=== PATIENT | female | born 1980 ===

== ENCOUNTER 2018-10-25 09:08 | Emergency (ER) | payer OTHER ==
[2018-10-25 09:41] VITALS: BP 152/90
--- NOTE | 2018-10-25 09:59 | UC ---
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 She is right handed. Has had medial right elbow pain x months (6+) Pain is constant It is exacerbated by painting or spackling worse past few days tried a tennis elbow brace that did not help no neck pain - History of Current Complaint Chief Complaint: UCUpperExtremity Stated Complaint: RIGHT ELBOW/ARM COMPLAINT (WC) Time Seen by Provider: 10/25/18 09:44 Hx Obtained From: Patient Hx Last Menstrual Period: 10/15/18 Mechanism of Injury: painting/spackling (she suspect an overuse injury) Onset/Duration: Weeks - mos Severity Initially: Mild Severity Currently: Mild Pain Intensity: 3 - worse with use Pain Scale Used: 0-10 Numeric Location Of Pain: Is Discrete @ - medial elbow, Radiates To - burning pain radiates to medial forearm Aggravating Factor(s): Movement, Pulling, Twisting Alleviating Factor(s): Rest Associated Signs And Symptoms: Positive: Numbness/Tingling. Negative: Swelling , Redness, Bruising, Fever, Weakness Body - Head: 1 - pain here (tender medial epicondyle) 2 - burning pain - Allergies/Home Medications Allergies/Adverse Reactions: Allergies Allergy/AdvReac Type Severity Reaction Status Date / Time No Known Allergies Allergy Verified 10/25/18 10:28 PMH/Surg Hx/FS Hx/Imm Hx Previously Healthy: Yes - Surgical History Surgical History: None - Family History Known Family History: Positive: Other - mom and sister have LUPUS - Social History Alcohol Use: Weekly Substance Use Type: None Smoking Status (MU): Heavy Every Day Tobacco Smoker Type: Cigarettes Amount Used/How Often: 1 ppd Review of Systems All Other Systems Reviewed And Are Negative: Yes Constitutional: Positive: Negative Skin: Positive: Negative Eyes: Positive: Negative ENT: Positive: Negative Respiratory: Positive: Negative Cardiovascular: Positive: Negative Gastrointestinal: Positive: Negative Genitourinary: Positive: Negative Motor: Positive: Negative Neurovascular: Positive: Negative Musculoskeletal: Positive: Arthralgia Neurological: Positive: Negative Psychological: Positive: Negative Physical Exam Triage Information Reviewed: Yes Appearance: Well-Appearing, No Pain Distress, Well-Nourished Vital Signs: Initial Vital Signs Temp 98.4 F 10/25/18 09:38 Pulse 101 10/25/18 09:38 Resp 16 10/25/18 09:38 BP 152/90 10/25/18 09:38 Pulse Ox 100 10/25/18 09:38 Vital Signs Reviewed: Yes Eyes: Positive: Conjunctiva Clear ENT: Positive: Hearing grossly normal, Uvula midline. Negative: Nasal congestion, Nasal drainage, Tonsillar swelling, Tonsillar exudate, Trismus, Hoarse voice Neck: Positive: Supple, Nontender, No Lymphadenopathy Respiratory: Positive: Lungs clear, Normal breath sounds, No respiratory distress Cardiovascular: Positive: RRR, No Murmur Musculoskeletal: Positive: ROM Intact, No Edema, Other: - see image Neurological: Positive: Alert Psychological Exam: Normal Skin Exam: Normal Elbow Pain Course/Dx - Differential Dx/Diagnosis Provider Diagnosis: Medial epicondylitis, right elbow Discharge - Sign-Out/Discharge Documenting (check all that apply): Patient Departure All imaging exams completed and their final reports reviewed: Yes - Discharge Plan Condition: Stable Disposition: HOME Prescriptions: Naproxen [Naprosyn 500 mg tab] 500 mg PO BID PRN #30 tablet PRN Reason: Pain Patient Education Materials: Tendinitis (ED) Referrals: No Primary Care Phys,NOPCP [Primary Care Provider] - Steven Beck MD [Medical Doctor] - 1 Week Constantine Diop MD [Medical Doctor] - If Needed Additional Instructions: heat twice daily your BP was a little high here I suggest you find a local MD to follow it try to get rechecked for BP in 2-12 weeks
== END 2018-10-25 10:39 | disposition home or self-care (01) ==
LOC: UCCORT 09:08
DX: M77.01 Medial epicondylitis, right elbow (principal); F17.210 Nicotine dependence, cigarettes, uncomplicated
CPT/HCPCS: 99212; G0463

== ENCOUNTER → 2019-07-19 07:18 | Day surgery (SDC) | payer OTHER ==
[~2019-07-19 07:18] MED LIST: Buffered Lidocaine 1% SYRIN* 1 ML/SYRINGE INTRADERM ONE; Bupivacaine 0.25% SDV* 30 ML ONE; Dexamethasone IV* 4 MG/ML 1 ML (4 MG) IV SLOW PU ONE; Dexamethasone IV* 4 MG/ML 1 ML (4 MG) ONE; Famotidine IV* 10 MG/ML 2 ML (20 mg) IV ONE; Famotidine IV* 10 MG/ML 2 ML (20 mg) ONE; Ketorolac INJ* 30 MG/ML 1 ML VIAL ONE; Lactated Ringers 1000 ML Bag* 1,000 ML IV SCH; Levalbuterol 0.63MG/3ML NEB* UNIT OF USE INH ONE; Midazolam* 1 MG/ML 5 ML VIAL (5 MG) ONE; Ondansetron INJ* 2 MG/ML VIAL ONE; Propofol* 10 MG/ML 20 ML BTL ONE; ceFAZolin 2 GM PREMIX in ORs 2 GM/50 ML BAG ONE; fentaNYL* 50 MCG/ML 5 ML VIAL (250 MCG VIAL) ONE
[2019-07-19 13:11] VITALS: BP 126/88
--- NOTE | 2019-07-19 13:28 | OP ---
DATE OF OPERATION: 07/19/19 - [facility] DATE OF : 76 SURGEON: Abhijeet Lopez MD SEATING CAPTAIN: DAGOBERTO Berman. An clothing sales assistant was needed for positioning of the arm and retraction. ANESTHESIOLOGIST: Dr. Urban. ANESTHESIA: General. PRE-OP DIAGNOSIS: Right ulnar nerve compression at the elbow. POST-OP DIAGNOSIS: Right ulnar nerve compression at the elbow. OPERATIVE PROCEDURE: Right ulnar nerve decompression with anterior transmuscular transposition. INDICATIONS: Ms. Hyman is 38 years old. She has a lot of tension signs and a lot of neuritis at the elbow. We had talked about treatment options. She wanted to proceed with surgery. She understands those risks and benefits including the risk of persistent symptoms amongst others. ESTIMATED BLOOD LOSS: 5 mL. COMPLICATIONS: None. FINDINGS: See above and below. DESCRIPTION OF PROCEDURE: Ms. Hyman was seen in the preoperative holding area. The correct site, side, and procedure were identified. We came back to the operating room. The arm was prepped and draped in usual fashion and a time-out was performed. The arm was exsanguinated with the Esmarch and the tourniquet was inflated to 250 mmHg. I made a curvilinear incision centered over the cubital tunnel. Dissection was carried down through the subcutaneous tissue. The medial antebrachial cutaneous nerve was preserved throughout the procedure. I went ahead and unroofed the nerve by releasing the fascia just proximal to Guevara's ligament, and appendiceal retractor was placed proximally and the release was carried out past the arcade of [place]. I then came distally and released Guevara's ligament and released the superficial FCU fascia. I split the 2 heads of the FCU and released the subfascial layer. At this point, the nerve was subluxating over the medial epicondyle. I therefore excised the medial intermuscular septum. I excised the leading edge of the FCU fascia. I raised up step-cut fascial flaps in the flexor pronator fascia and excised the muscular septi. A vessel loop was placed around the nerve and tenolysis was performed. The nerve was then transposed up onto the muscular bed and the 2 ends of the fascial flaps were sewn end-to-end to provide a loose fascial sleeve to keep the nerve in the transposed position. At this point, everything was looking very good. Hemostasis was obtained with the Bovie and the bipolar. The wound was irrigated out, subcutaneous tissue was reapproximated with 3-0 Vicryl suture. Skin was closed with 3-0 Monocryl and Steri-Strips. A 0.25% Marcaine was infiltrated all about the area. The wound was dressed with 4x4s, sterile Webril, and ABD at the elbow and then a long-arm splint with lateral buttress was applied. She was taken to the recovery room in stable condition. [id number]/[id number] #: [id number]
== END | disposition home or self-care (01) ==
LOC: OR 07:18
PROVIDERS: ATTEND Orthopaedic Surgery Hand Surgery
DX: G56.21 Lesion of ulnar nerve, right upper limb (principal); F17.210 Nicotine dependence, cigarettes, uncomplicated
CPT/HCPCS: 81025; J0690; J1100; J1885; J2250; J2405; J2704; J3010; J3490